=== PATIENT | male | born 1960 | race Hispanic/Latino ===

== ENCOUNTER 2020-04-22 11:45 | Emergency (ER) | payer OTHER ==
[2020-04-22] MEDS ORDERED: ACETAMINOPHEN EXTRA STRENGTH 500 MG TABLET ONE (12:20)
== END 2020-04-22 13:55 | disposition left against medical advice (07) ==
LOC: EDH 11:45
DX: S10.93XA Contusion of unspecified part of neck, initial encounter (principal); S00.91XA Abrasion of unspecified part of head, initial encounter; Z72.0 Tobacco use; F14.10 Cocaine abuse, uncomplicated; Y08.89XA Assault by other specified means, initial encounter; Y93.89 Activity, other specified; Y92.89 Other specified places as the place of occurrence of the external cause; Y99.8 Other external cause status
CPT/HCPCS: 70450; 72125

== ENCOUNTER 2021-03-19 06:05 | Emergency (ER) | payer OTHER ==
[~2021-03-19] VITALS: Ht 185.4 cm; Wt 78.5 kg
[2021-03-19] MEDS ORDERED: MORPHINE 2 MG SYG IVP ONE (07:00)
[2021-03-19] MEDS ORDERED: TETANUS/DIPHTHERIA TOXOID [ADULT] 0.5 ML VIAL IM ONE (07:00)
[2021-03-19] MEDS ORDERED: ONDANSETRON 4MG INJ IVP ONE (07:00)
[2021-03-19] MEDS ORDERED: CEFAZOLIN SODIUM 1 GM VIAL IVP ONE (07:00)
[2021-03-19] MEDS ORDERED: NEOMY SULF/BACITRA/POLYMYXIN B 1 EACH PACKET TP ONE (07:00)
[2021-03-19] MEDS ORDERED: 0.9%NACL 50ML 50 ML IV ONE (07:29)
[2021-03-19 07:33] LABS: BASOPHILS % (AUTO) 0.9 % (0.0-5.0); EOSINOPHILS % (AUTO) 5.5 % (0.0-8.0); HEMATOCRIT 36.3 % (42-54); LYMPHOCYTES % (AUTO) 20.9 % (21.0-51.0); MEAN CORPUSCULAR HEMOGLOBIN 32.7 pg (27.0-33.0); MEAN CORPUSCULAR HGB CONC 33.3 g/dL (32.0-36.0); MEAN CORPUSCULAR VOLUME 98.1 fL (79-99); MONOCYTES % (AUTO) 8.8 % (3.0-13.0); NEUTROPHILS % (AUTO) 63.7 % (40.0-77.0); PLATELET COUNT (AUTO) 169 K/uL (130-400); RED CELL DISTRIBUTION WIDTH 14.4 % (11.0-15.5); WHITE BLOOD COUNT (AUTO) 5.5 K/uL (4.8-10.8)
[2021-03-19 07:46] LABS: ALANINE AMINOTRANSFERASE 61 U/L (12-78); ALBUMIN 3.1 g/dL (3.5-5.0); APPEARANCE,URINE Clear (CLEAR); ASPARTATE AMINOTRANSFERASE 64 U/L (10-37); BILIRUBIN,TOTAL 0.4 mg/dL (0.2-1.0); BILIRUBIN,URINE Negative (NEGATIVE); CARBON DIOXIDE 27 mmol/L (21-32); CHLORIDE 103 mmol/L (101-111); COLOR,URINE Yellow (YELLOW); GLOMERULAR FILTR. RATE CALC 80 mL/min (>60); GLUCOSE, URINE (UA) Negative (NEGATIVE); GLUCOSE,RANDOM 94 mg/dL (70-105); KETONES,URINE Negative (NEGATIVE); LEUKOCYTE ESTERASE ,URINE Negative (NEGATIVE); NITRATE,URINE Negative (NEGATIVE); OCCULT BLOOD,URINE Negative (NEGATIVE); PH,URINE 5.5 (5.0-8.0); POTASSIUM 4.1 mmol/L (3.5-5.1); PROTEIN,URINE Negative (NEGATIVE); SODIUM SERUM 135 mmol/L (136-145); TOTAL PROTEIN, SERUM 7.8 g/dL (6.0-8.3); UREA NITROGEN, BLOOD 18 mg/dL (7-18); UROBILINOGEN,URINE 0.2 mg/dL (0.2-1.0)
[2021-03-19 07:47] LABS: AMPHET/METH SCREEN,URINE NEGATIVE (NEGATIVE); BARBITURATE SCREEN, URINE NEGATIVE (NEGATIVE); BENZODIAZEPINES SCREEN,URINE NEGATIVE (NEGATIVE); CANNABINOID SCREEN,URINE POSITIVE (NEGATIVE); COCAINE SCREEN,URINE POSITIVE (NEGATIVE); OPIATE SCREEN,URINE NEGATIVE (NEGATIVE); PHENCYCLIDINE SCREEN,URINE NEGATIVE (NEGATIVE)
[2021-03-19 07:58] LABS: ALCOHOL, BLOOD < 3 mg/dL (0-10)
[2021-03-19] MEDS ORDERED: ACET1TAB25 PO (09:28)
[2021-03-19 09:35] VITALS: BP 152/89
== END 2021-03-19 10:28 | disposition home or self-care (01) ==
LOC: EDH 06:05
DX: S80.01XA Contusion of right knee, initial encounter (principal); S80.02XA Contusion of left knee, initial encounter; S30.0XXA Contusion of lower back and pelvis, initial encounter; S20.211A Contusion of right front wall of thorax, initial encounter; S00.81XA Abrasion of other part of head, initial encounter; S90.812A Abrasion, left foot, initial encounter; S90.811A Abrasion, right foot, initial encounter; Z79.899 Other long term (current) drug therapy; Y08.89XA Assault by other specified means, initial encounter; Y93.89 Activity, other specified; Y92.89 Other specified places as the place of occurrence of the external cause; Y99.8 Other external cause status
CPT/HCPCS: 36415; 70450; 70486; 71250; 73130; 73562; 74176; 80053; 80305; 81003; 85025; 90471; 90714; 96361; 96374; 96375; 99285; J0690; J2405

== ENCOUNTER 2021-09-17 22:36 | Emergency (ER) | payer OTHER ==
[~2021-09-17 22:36] MED LIST: ACET-2079 PO
[2021-09-17 22:43] VITALS: BP 108/64
[2021-09-17] MEDS ORDERED: ACETAMINOPHEN 500 MG TABLET PO ONE (23:30)
== END 2021-09-18 08:40 | disposition home or self-care (01) ==
LOC: EDH 22:36
DX: S00.12XA Contusion of left eyelid and periocular area, initial encounter (principal); F10.129 Alcohol abuse with intoxication, unspecified; Y08.89XA Assault by other specified means, initial encounter; Y93.89 Activity, other specified; Y92.89 Other specified places as the place of occurrence of the external cause; Y99.8 Other external cause status; Y90.9 Presence of alcohol in blood, level not specified
CPT/HCPCS: 70450

== ENCOUNTER 2021-11-26 03:00 | Emergency (ER) | payer OTHER ==
[2021-11-26] MEDS ORDERED: OCTYL 2-CYANOACRYLATE 1 EACH TP ONE (03:17)
[2021-11-26] MEDS ORDERED: OCTYL 2-CYANOACRYLATE 1 EACH TP SCH (03:30)
[2021-11-26 04:26] VITALS: BP 140/82
== END 2021-11-26 05:22 | disposition home or self-care (01) ==
LOC: EDH 03:00
DX: S01.01XA Laceration without foreign body of scalp, initial encounter (principal); Y08.89XA Assault by other specified means, initial encounter; Y93.89 Activity, other specified; Y92.89 Other specified places as the place of occurrence of the external cause; Y99.8 Other external cause status
CPT/HCPCS: 12001; 70450